=== PATIENT | female | born 1965 | race Caucasian/White ===

== ENCOUNTER 2018-06-07 19:32 | Inpatient (IN) | payer BC, OTHER ==
[~2018-06-07] VITALS: Ht 160 cm; Wt 105.8 kg
[2018-06-07] MEDS ORDERED: PIPERACILLIN/TAZO/PMX 3.375GM 50 ML IV ONE (20:30)
[2018-06-07] MEDS ORDERED: ONDANSETRON ODT 4 MG PO ONE (20:30)
[2018-06-07] MEDS ORDERED: CLINDAMYCIN PMX 900MG/50ML 50 ML IVPB ONE (20:30)
[2018-06-07] MEDS ORDERED: VANCOMYCIN PER PHARMACY MC PRN ×2 (20:30→22:00)
[2018-06-07] MEDS ORDERED: VANCOMYCIN 2,000 MG in SODIUM CHLORIDE 0.9% 500 ML IV ONE (20:30)
[2018-06-07] MEDS ORDERED: MORPHINE SULFATE 4 MG/ML, 1ML IV PRN (20:30)
[2018-06-07 20:40] LABS: BASOPHILS # (AUTO) 0.03 x10^3/uL (0-0.1); BASOPHILS % (AUTO) 0 % (0-1); EOSINOPHILS # (AUTO) 0.34 x10^3/uL (0-0.4); EOSINOPHILS % (AUTO) 3 % (1-7); LYMPHOCYTES % (AUTO) 20 % (22-44); MD NO; MEAN CORPUSCULAR HEMOGLOBIN 28.5 pg (27.0-34.8); MEAN CORPUSCULAR HGB CONC 33.2 g/dL (32.4-35.8); MEAN CORPUSCULAR VOLUME 85.8 fL (80-100); MEAN PLATELET VOLUME 9.7 fL (7.4-10.4); MONOCYTES # (AUTO) 0.38 x10^3/uL (0.2-0.8); MONOCYTES % (AUTO) 3 % (2-9); NEUTROPHILS # (AUTO) 8.35 x10^3/uL (1.8-6.8); NEUTROPHILS % (AUTO) 74 % (42-75); PLATELET COUNT 235 x10^3/uL (130-400); RED BLOOD COUNT 5.37 x10^6/uL (3.82-5.3)
[2018-06-07 20:47] LABS: PH, VENOUS 7.368 pH (7.320-7.420)
[2018-06-07 20:52] LABS: ACETONE, SERUM Negative (Negative)
[2018-06-07 20:53] LABS: ALANINE AMINOTRANSFERASE 19 U/L (12-78); ALBUMIN 3.5 g/dL (3.4-5.0); ANION GAP 10 mmol/L (5-15); CHLORIDE 106 mmol/L (98-107)
[2018-06-07 21:00] LABS: ALKALINE PHOSPHATASE 158 U/L (45-117); BILIRUBIN,TOTAL 0.7 mg/dL (0.2-1.0); TOTAL PROTEIN 8.5 g/dL (6.4-8.2)
[2018-06-07] MEDS ORDERED: MORPHINE SULFATE 4 MG/ML, 1ML ONE (21:04)
[2018-06-07] MEDS ORDERED: ONDANSETRON ODT 4 MG ONE ×2 (21:04→21:52)
[2018-06-07] MEDS ORDERED: PIPERACILLIN/TAZO/PMX 3.375GM 50 ML ONE (21:04)
[2018-06-07] MEDS ORDERED: SODIUM CHLORIDE FLUSH 10ML SYR IVF PRN (21:30)
[2018-06-07] MEDS ORDERED: ONDANSETRON 2MG/ML, 2ML IVPush PRN (22:00)
[2018-06-07] MEDS ORDERED: ZOLPIDEM 5MG TABLET PO PRN (22:00)
[2018-06-07] MEDS ORDERED: ENALAPRILAT 1.25 MG/ML, 2ML IVPush PRN (22:00)
[2018-06-07] MEDS ORDERED: GUAIFENESIN/COD200MG-20MG/10ML LIQUID PO PRN (22:00)
[2018-06-07] MEDS ORDERED: DOCUSATE 100 MG CAPSULE PO PRN (22:00)
[2018-06-07] MEDS ORDERED: ACETAMINOPHEN 325 MG TABLET PO PRN (22:00)
[2018-06-07] MEDS ORDERED: METF500T17 PO (22:05)
[2018-06-07] MEDS ORDERED: LISI40TA PO (22:05)
[2018-06-07] MEDS ORDERED: INSU100C SQ-INSULIN (22:05)
[2018-06-07] MEDS ORDERED: INSU100V13 SQ-INSULIN (22:05)
[2018-06-07] MEDS ORDERED: PHARMACOKINETIC CONSULTATION MC ONE (22:30)
[2018-06-07] MEDS ORDERED: PHARMACOKINETIC MONITORING MC PRN (22:30)
[2018-06-07 22:45] VITALS: BP 163/81
[2018-06-07 22:53] LABS: CULTURE INDICATED? NO; MICROSCOPIC AUTO
[2018-06-08] MEDS: ENOXAPARIN 40 MG/0.4 ML SQ SCH ×2 (00:22→21:26)
[2018-06-08] MEDS: NICOTINE 7 MG/24 HR PATCH.TD24 TD SCH ×2 (00:22→21:26)
[2018-06-08] MEDS: INSULIN GLARGINE 100 UNITS/ML, PEN SQ-INSULIN SCH ×2 (00:23→20:22)
[2018-06-08] MEDS: SODIUM CHLORIDE 0.9% 1,000 ML IV SCH ×4 (00:24→21:25)
[2018-06-08 00:58] LABS: BASOPHILS # (AUTO) 0.03 x10^3/uL (0-0.1); BASOPHILS % (AUTO) 0 % (0-1); EOSINOPHILS # (AUTO) 0.34 x10^3/uL (0-0.4); EOSINOPHILS % (AUTO) 3 % (1-7); LYMPHOCYTES # (AUTO) 2.68 x10^3/uL (1-3.4); LYMPHOCYTES % (AUTO) 23 % (22-44); MD NO; MEAN CORPUSCULAR HEMOGLOBIN 28.2 pg (27.0-34.8); MEAN CORPUSCULAR HGB CONC 32.8 g/dL (32.4-35.8); MEAN PLATELET VOLUME 9.5 fL (7.4-10.4); MONOCYTES # (AUTO) 0.45 x10^3/uL (0.2-0.8); MONOCYTES % (AUTO) 4 % (2-9); NEUTROPHILS # (AUTO) 8.25 x10^3/uL (1.8-6.8); NEUTROPHILS % (AUTO) 70 % (42-75); PLATELET COUNT 235 x10^3/uL (130-400); RED BLOOD COUNT 5.21 x10^6/uL (3.82-5.3); RED CELL DISTRIBUTION WIDTH 13.9 % (9.6-15.2)
[2018-06-08 01:09] LABS: ANION GAP 9 mmol/L (5-15); CALCIUM 8.7 mg/dL (8.5-10.1); CHLORIDE 106 mmol/L (98-107); CREATININE 1.13 mg/dL (0.55-1.02); TRIGLYCERIDES 144 mg/dL (50-200); VLDL CHOLESTEROL 29 mg/dL (0-25)
[2018-06-08 01:12] LABS: CHOL/HDL RATIO 3.7; CHOLESTEROL, TOTAL 112 mg/dL (140-239); HDL CHOL % 27 % (28-40); HDL CHOLESTEROL (DIRECT) 30 mg/dL (40-60); LDL CHOLESTEROL,CALCULATED 53 mg/dL (54-169); LDL/HDL RATIO 1.8 (0.5-3.0)
[2018-06-08 01:15] VITALS: BP 135/80
[2018-06-08] MEDS: PIPERACILLIN/TAZO/PMX 3.375GM 50 ML IV SCH ×4 (01:48→20:20)
[2018-06-08 08:00] VITALS: BP 129/68
[2018-06-08] MEDS: LISINOPRIL 5 MG TABLET PO SCH (08:08)
[2018-06-08] MEDS: INSULIN LISPRO 100 UNITS/ML, PEN SQ-INSULIN SCH ×4 (08:08→20:21)
[2018-06-08] MEDS ORDERED: MAGNESIUM SULFATE PMX 2GM/50ML 50 ML IV ONE (10:00)
[2018-06-08 13:20] VITALS: BP 156/82
[2018-06-08] MEDS: GABAPENTIN 100 MG CAPSULE PO SCH ×2 (16:02→20:21)
[2018-06-08] MEDS: OXYcodone IR 5MG TABLET PO PRN (16:03)
[2018-06-08 20:00] VITALS: BP 126/74
[2018-06-08] MEDS: ATORVASTATIN 20 MG TABLET PO SCH (20:21)
[2018-06-08] MEDS: VANCOMYCIN 2,000 MG in SODIUM CHLORIDE 0.9% 500 ML IV SCH (22:48)
[2018-06-09 02:00] VITALS: BP 130/81
[2018-06-09] MEDS: PIPERACILLIN/TAZO/PMX 3.375GM 50 ML IV SCH ×4 (02:15→20:53)
[2018-06-09] MEDS: SODIUM CHLORIDE 0.9% 1,000 ML IV SCH ×4 (02:16→20:56)
[2018-06-09] MEDS: OXYcodone IR 5MG TABLET PO PRN ×3 (02:21→15:27)
[2018-06-09 03:48] LABS: ANION GAP 8 mmol/L (5-15); CALCIUM 8.4 mg/dL (8.5-10.1); CHLORIDE 107 mmol/L (98-107); CREATININE 0.98 mg/dL (0.55-1.02)
[2018-06-09 03:49] LABS: ALBUMIN 2.8 g/dL (3.4-5.0)
[2018-06-09 03:54] LABS: BASOPHILS # (AUTO) 0.04 x10^3/uL (0-0.1); BASOPHILS % (AUTO) 1 % (0-1); EOSINOPHILS # (AUTO) 0.23 x10^3/uL (0-0.4); EOSINOPHILS % (AUTO) 3 % (1-7); LYMPHOCYTES # (AUTO) 1.87 x10^3/uL (1-3.4); LYMPHOCYTES % (AUTO) 23 % (22-44); MD NO; MEAN CORPUSCULAR HEMOGLOBIN 28.4 pg (27.0-34.8); MEAN CORPUSCULAR HGB CONC 33.2 g/dL (32.4-35.8); MEAN CORPUSCULAR VOLUME 85.5 fL (80-100); MEAN PLATELET VOLUME 9.5 fL (7.4-10.4); MONOCYTES # (AUTO) 0.44 x10^3/uL (0.2-0.8); MONOCYTES % (AUTO) 5 % (2-9); NEUTROPHILS # (AUTO) 5.63 x10^3/uL (1.8-6.8); NEUTROPHILS % (AUTO) 69 % (42-75); PLATELET COUNT 190 x10^3/uL (130-400); RED BLOOD COUNT 4.71 x10^6/uL (3.82-5.3); RED CELL DISTRIBUTION WIDTH 13.6 % (9.6-15.2)
[2018-06-09] MEDS: INSULIN LISPRO 100 UNITS/ML, PEN SQ-INSULIN SCH ×4 (07:00→21:00)
[2018-06-09 07:10] VITALS: BP 138/80
[2018-06-09] MEDS: GABAPENTIN 100 MG CAPSULE PO SCH ×3 (09:07→20:53)
[2018-06-09] MEDS: LISINOPRIL 5 MG TABLET PO SCH (09:07)
[2018-06-09] MEDS: CLOBETASOL PROPIONATE CRM 0.05%, 15GM TP SCH ×2 (12:14→21:01)
[2018-06-09 14:08] VITALS: BP 144/83
[2018-06-09 20:00] VITALS: BP 138/80
[2018-06-09] MEDS: ENOXAPARIN 40 MG/0.4 ML SQ SCH (20:53)
[2018-06-09] MEDS: NICOTINE 7 MG/24 HR PATCH.TD24 TD SCH (20:53)
[2018-06-09] MEDS: ATORVASTATIN 20 MG TABLET PO SCH (20:53)
[2018-06-09] MEDS: INSULIN GLARGINE 100 UNITS/ML, PEN SQ-INSULIN SCH (21:38)
[2018-06-09] MEDS: VANCOMYCIN 2,000 MG in SODIUM CHLORIDE 0.9% 500 ML IV SCH (23:39)
[2018-06-10] MEDS: OXYcodone IR 5MG TABLET PO PRN ×2 (01:49→09:03)
[2018-06-10 01:50] VITALS: BP 142/83
[2018-06-10] MEDS: PIPERACILLIN/TAZO/PMX 3.375GM 50 ML IV SCH ×4 (03:27→20:54)
[2018-06-10] MEDS: SODIUM CHLORIDE 0.9% 1,000 ML IV SCH ×2 (05:51→11:21)
[2018-06-10] MEDS: INSULIN LISPRO 100 UNITS/ML, PEN SQ-INSULIN SCH ×4 (07:00→21:12)
[2018-06-10 07:03] VITALS: BP 134/81
[2018-06-10] MEDS: LISINOPRIL 5 MG TABLET PO SCH (08:54)
[2018-06-10] MEDS: GABAPENTIN 100 MG CAPSULE PO SCH ×3 (08:54→20:55)
[2018-06-10] MEDS: CLOBETASOL PROPIONATE CRM 0.05%, 15GM TP SCH ×2 (09:03→21:15)
[2018-06-10 13:24] LABS: ANA SCREEN NEGATIVE (Negative)
[2018-06-10 14:08] VITALS: BP 132/81
[2018-06-10 19:14] VITALS: BP 140/79
[2018-06-10] MEDS: ATORVASTATIN 20 MG TABLET PO SCH (20:55)
[2018-06-10] MEDS: ENOXAPARIN 40 MG/0.4 ML SQ SCH (21:11)
[2018-06-10] MEDS: NICOTINE 7 MG/24 HR PATCH.TD24 TD SCH (21:11)
[2018-06-10] MEDS: INSULIN GLARGINE 100 UNITS/ML, PEN SQ-INSULIN SCH (21:12)
[2018-06-10] MEDS: VANCOMYCIN 2,000 MG in SODIUM CHLORIDE 0.9% 500 ML IV SCH (23:18)
[2018-06-11 00:22] VITALS: BP 127/74
[2018-06-11] MEDS: PIPERACILLIN/TAZO/PMX 3.375GM 50 ML IV SCH ×4 (02:18→20:02)
[2018-06-11] MEDS: OXYcodone IR 5MG TABLET PO PRN ×2 (02:19→11:18)
[2018-06-11 05:20] LABS: ANION GAP 7 mmol/L (5-15); CALCIUM 8.9 mg/dL (8.5-10.1); CHLORIDE 106 mmol/L (98-107); CREATININE 1.25 mg/dL (0.55-1.02)
[2018-06-11 06:57] VITALS: BP 132/82
[2018-06-11] MEDS: INSULIN LISPRO 100 UNITS/ML, PEN SQ-INSULIN SCH ×4 (09:00→20:43)
[2018-06-11] MEDS: GABAPENTIN 100 MG CAPSULE PO SCH ×3 (09:01→20:41)
[2018-06-11] MEDS: LISINOPRIL 5 MG TABLET PO SCH (09:01)
[2018-06-11] MEDS: CLOBETASOL PROPIONATE CRM 0.05%, 15GM TP SCH ×2 (09:01→22:36)
[2018-06-11] MEDS ORDERED: MAGNESIUM SULFATE PMX 2GM/50ML 50 ML IV ONE (09:30)
[2018-06-11] MEDS: MAGNESIUM CHLORIDE 64 MG TABLET.DR PO SCH ×2 (09:30→20:41)
[2018-06-11 12:28] VITALS: BP 145/81
[2018-06-11] MEDS: ATORVASTATIN 20 MG TABLET PO SCH (20:42)
[2018-06-11] MEDS: INSULIN GLARGINE 100 UNITS/ML, PEN SQ-INSULIN SCH (20:43)
[2018-06-11 20:44] VITALS: BP 115/67
[2018-06-11] MEDS: VANCOMYCIN 2,000 MG in SODIUM CHLORIDE 0.9% 500 ML IV SCH (22:34)
[2018-06-11] MEDS: ENOXAPARIN 40 MG/0.4 ML SQ SCH (22:35)
[2018-06-11] MEDS: NICOTINE 7 MG/24 HR PATCH.TD24 TD SCH (22:35)
[2018-06-12 01:45] VITALS: BP_SYST 137; BP_SYST 150; BP_DIAS 82; BP_DIAS 86
[2018-06-12] MEDS: PIPERACILLIN/TAZO/PMX 3.375GM 50 ML IV SCH ×2 (01:57→08:00)
[2018-06-12 05:09] LABS: CREATININE 1.35 mg/dL (0.55-1.02)
[2018-06-12] MEDS: INSULIN LISPRO 100 UNITS/ML, PEN SQ-INSULIN SCH ×2 (07:00→12:05)
[2018-06-12 08:00] VITALS: BP 152/88
[2018-06-12] MEDS: GABAPENTIN 100 MG CAPSULE PO SCH (08:11)
[2018-06-12] MEDS: LISINOPRIL 5 MG TABLET PO SCH (08:11)
[2018-06-12] MEDS: OXYcodone IR 5MG TABLET PO PRN (08:12)
[2018-06-12] MEDS: MAGNESIUM CHLORIDE 64 MG TABLET.DR PO SCH (08:12)
[2018-06-12] MEDS: CLOBETASOL PROPIONATE CRM 0.05%, 15GM TP SCH (08:13)
[2018-06-12] MEDS ORDERED: GABA-826 PO (11:03)
[2018-06-12] MEDS ORDERED: TRAM50TA2 PO (11:03)
[2018-06-12] MEDS ORDERED: DOXY100T10 PO (11:03)
[2018-06-12] MEDS ORDERED: ATOR20TA9 PO (11:03)
[2018-06-12] MEDS ORDERED: CLOB15CR19 TP (11:03)
[2018-06-12] MEDS ORDERED: LISI-167 PO (11:03)
[2018-06-12] MEDS ORDERED: MAGN64TA7 PO (11:04)
[2018-06-12] MEDS ORDERED: INSU100C SQ-INSULIN (11:14)
[2018-06-12] MEDS ORDERED: INSU100V13 SQ-INSULIN (11:14)
== END 2018-06-12 13:30 | disposition home or self-care (01) | DRG 638 ==
LOC: ED 20:50 → EDIP 21:18 → 4WST 22:27
PROVIDERS: ADMIT Internal Medicine; ATTEND Internal Medicine
DX: E11.621 Type 2 diabetes mellitus with foot ulcer (principal); L88 Pyoderma gangrenosum; L97.919 Non-pressure chronic ulcer of unspecified part of right lower leg with unspecified severity; L97.929 Non-pressure chronic ulcer of unspecified part of left lower leg with unspecified severity; Z68.41 Body mass index [BMI] 40.0-44.9, adult; L03.115 Cellulitis of right lower limb; E11.22 Type 2 diabetes mellitus with diabetic chronic kidney disease; E11.21 Type 2 diabetes mellitus with diabetic nephropathy; E11.65 Type 2 diabetes mellitus with hyperglycemia; E66.01 Morbid (severe) obesity due to excess calories; F17.200 Nicotine dependence, unspecified, uncomplicated; E11.622 Type 2 diabetes mellitus with other skin ulcer; I12.9 Hypertensive chronic kidney disease with stage 1 through stage 4 chronic kidney disease, or unspecified chronic kidney disease; L97.509 Non-pressure chronic ulcer of other part of unspecified foot with unspecified severity; N18.3 Chronic kidney disease, stage 3 (moderate); R31.0 Gross hematuria; Z79.4 Long term (current) use of insulin; Z80.41 Family history of malignant neoplasm of ovary; Z90.710 Acquired absence of both cervix and uterus; Z82.49 Family history of ischemic heart disease and other diseases of the circulatory system; Z91.14 Patient's other noncompliance with medication regimen
CPT/HCPCS: 36415; 71045; 80048; 80053; 80061; 80202; 81001; 82010; 82040; 82565; 82803; 82962; 83036; 83605; 83735; 84100; 84145; 84155; 84165; 85025; 85651; 86038; 86140; 86147; 86430; 86704; 86705; 86706; 86707; 86803; 87040; 87070; 87075; 87077; 87106; 87147; 87186; 87205; 87340; 87350; 93922; 96365; 96375; G0378; J1650; J2543; J3370; Q0162; J1815; J3475; J7030; J7040

== ENCOUNTER → 2018-06-16 | Outpatient (CLI) | payer OTHER ==
[~2018-06-16] MED LIST: ATOR20TA9 PO; CLOB15CR19 TP; DOXY100T10 PO; GABA-826 PO; INSU100C SQ-INSULIN; INSU100V13 SQ-INSULIN; LISI-167 PO; LISI40TA PO; MAGN64TA7 PO; METF500T17 PO; TRAM50TA2 PO
== END | disposition home or self-care (01) ==
LOC: WOUND 14:26
PROVIDERS: ATTEND Internal Medicine
DX: E11.622 Type 2 diabetes mellitus with other skin ulcer (principal); L97.812 Non-pressure chronic ulcer of other part of right lower leg with fat layer exposed; L97.822 Non-pressure chronic ulcer of other part of left lower leg with fat layer exposed; I13.10 Hypertensive heart and chronic kidney disease without heart failure, with stage 1 through stage 4 chronic kidney disease, or unspecified chronic kidney disease; E11.22 Type 2 diabetes mellitus with diabetic chronic kidney disease; N18.3 Chronic kidney disease, stage 3 (moderate); E11.21 Type 2 diabetes mellitus with diabetic nephropathy; E11.65 Type 2 diabetes mellitus with hyperglycemia; E78.5 Hyperlipidemia, unspecified; E66.01 Morbid (severe) obesity due to excess calories; Z68.39 Body mass index [BMI] 39.0-39.9, adult; Z79.4 Long term (current) use of insulin; Z90.710 Acquired absence of both cervix and uterus; Z87.891 Personal history of nicotine dependence
CPT/HCPCS: 97597; 97598; 99215

== ENCOUNTER → 2018-06-23 | Outpatient (CLI) | payer OTHER | END | disposition home or self-care (01) | LOC: WOUND 12:45 | PROVIDERS: ATTEND Internal Medicine | DX: E11.622 Type 2 diabetes mellitus with other skin ulcer (principal); L97.812 Non-pressure chronic ulcer of other part of right lower leg with fat layer exposed; L97.822 Non-pressure chronic ulcer of other part of left lower leg with fat layer exposed; E11.22 Type 2 diabetes mellitus with diabetic chronic kidney disease; I13.10 Hypertensive heart and chronic kidney disease without heart failure, with stage 1 through stage 4 chronic kidney disease, or unspecified chronic kidney disease; N18.3 Chronic kidney disease, stage 3 (moderate); E11.21 Type 2 diabetes mellitus with diabetic nephropathy; E11.65 Type 2 diabetes mellitus with hyperglycemia; E78.5 Hyperlipidemia, unspecified; E66.01 Morbid (severe) obesity due to excess calories; Z68.39 Body mass index [BMI] 39.0-39.9, adult; Z79.4 Long term (current) use of insulin; Z90.710 Acquired absence of both cervix and uterus; Z87.891 Personal history of nicotine dependence | CPT/HCPCS: 97597; 97598 ==

== ENCOUNTER → 2018-06-26 | Outpatient (CLI) | payer OTHER | END | disposition home or self-care (01) | LOC: CVU 07:05 | PROVIDERS: ATTEND Internal Medicine | DX: L97.812 Non-pressure chronic ulcer of other part of right lower leg with fat layer exposed (principal); L97.822 Non-pressure chronic ulcer of other part of left lower leg with fat layer exposed; E11.622 Type 2 diabetes mellitus with other skin ulcer; E66.9 Obesity, unspecified; Z87.891 Personal history of nicotine dependence | CPT/HCPCS: 93970 ==

== ENCOUNTER → 2018-07-02 | Outpatient (CLI) | payer OTHER | END | disposition home or self-care (01) | LOC: WOUND 09:00 | PROVIDERS: ATTEND Internal Medicine Cardiovascular Disease | DX: E11.622 Type 2 diabetes mellitus with other skin ulcer (principal); L97.812 Non-pressure chronic ulcer of other part of right lower leg with fat layer exposed; L97.822 Non-pressure chronic ulcer of other part of left lower leg with fat layer exposed; E11.22 Type 2 diabetes mellitus with diabetic chronic kidney disease; I13.10 Hypertensive heart and chronic kidney disease without heart failure, with stage 1 through stage 4 chronic kidney disease, or unspecified chronic kidney disease; N18.3 Chronic kidney disease, stage 3 (moderate); E11.21 Type 2 diabetes mellitus with diabetic nephropathy; E11.65 Type 2 diabetes mellitus with hyperglycemia; E78.5 Hyperlipidemia, unspecified; E66.01 Morbid (severe) obesity due to excess calories; Z79.4 Long term (current) use of insulin; Z90.710 Acquired absence of both cervix and uterus; Z87.891 Personal history of nicotine dependence; Z68.41 Body mass index [BMI] 40.0-44.9, adult | CPT/HCPCS: 97602 ==

== ENCOUNTER 2018-07-16 11:12 | Outpatient (CLI) | payer OTHER | END 2018-07-16 17:00 | disposition home or self-care (01) | LOC: WOUND 11:12 | PROVIDERS: ATTEND Internal Medicine Cardiovascular Disease | DX: E11.622 Type 2 diabetes mellitus with other skin ulcer (principal); L97.812 Non-pressure chronic ulcer of other part of right lower leg with fat layer exposed; L97.822 Non-pressure chronic ulcer of other part of left lower leg with fat layer exposed; E11.22 Type 2 diabetes mellitus with diabetic chronic kidney disease; I13.10 Hypertensive heart and chronic kidney disease without heart failure, with stage 1 through stage 4 chronic kidney disease, or unspecified chronic kidney disease; N18.3 Chronic kidney disease, stage 3 (moderate); E11.21 Type 2 diabetes mellitus with diabetic nephropathy; E11.65 Type 2 diabetes mellitus with hyperglycemia; E78.5 Hyperlipidemia, unspecified; E66.01 Morbid (severe) obesity due to excess calories; Z68.39 Body mass index [BMI] 39.0-39.9, adult; Z79.4 Long term (current) use of insulin; Z90.710 Acquired absence of both cervix and uterus; Z87.891 Personal history of nicotine dependence | CPT/HCPCS: 97602 ==

== ENCOUNTER → 2018-07-23 | Outpatient (CLI) | payer OTHER | END | disposition home or self-care (01) | LOC: WOUND 13:06 | PROVIDERS: ATTEND Internal Medicine | DX: E11.622 Type 2 diabetes mellitus with other skin ulcer (principal); L97.812 Non-pressure chronic ulcer of other part of right lower leg with fat layer exposed; L97.822 Non-pressure chronic ulcer of other part of left lower leg with fat layer exposed; E11.21 Type 2 diabetes mellitus with diabetic nephropathy; E11.65 Type 2 diabetes mellitus with hyperglycemia; I13.10 Hypertensive heart and chronic kidney disease without heart failure, with stage 1 through stage 4 chronic kidney disease, or unspecified chronic kidney disease; E11.22 Type 2 diabetes mellitus with diabetic chronic kidney disease; N18.9 Chronic kidney disease, unspecified; E78.5 Hyperlipidemia, unspecified; E66.01 Morbid (severe) obesity due to excess calories; Z68.39 Body mass index [BMI] 39.0-39.9, adult; Z90.710 Acquired absence of both cervix and uterus; Z87.891 Personal history of nicotine dependence | CPT/HCPCS: 97597 ==

== ENCOUNTER 2019-12-01 19:10 | Inpatient (IN) | payer OTHER ==
[~2019-12-01] VITALS: Ht 160 cm; Wt 107.1 kg
[~2019-12-01 19:10] MED LIST changes: +ATOR20TA37 PO; -ATOR20TA9 PO; -DOXY100T10 PO; +DOXY100T23 PO
[2019-12-01 19:59] LABS: ANION GAP 7 mmol/L (5-15); CALCIUM 9.2 mg/dL (8.5-10.1); CHLORIDE 103 mmol/L (98-107); CREATININE 1.02 mg/dL (0.55-1.02)
[2019-12-01 20:07] LABS: BASOPHILS # (AUTO) 0.02 x10^3/uL (0-0.1); BASOPHILS % (AUTO) 0 % (0-1); EOSINOPHILS # (AUTO) 0.28 x10^3/uL (0-0.4); EOSINOPHILS % (AUTO) 3 % (1-7); LYMPHOCYTES # (AUTO) 2.32 x10^3/uL (1-3.4); LYMPHOCYTES % (AUTO) 22 % (22-44); MD NO; MEAN CORPUSCULAR HEMOGLOBIN 26.9 pg (27.0-34.8); MEAN CORPUSCULAR HGB CONC 32.5 g/dL (32.4-35.8); MEAN CORPUSCULAR VOLUME 82.8 fL (80-100); MEAN PLATELET VOLUME 9.8 fL (7.4-10.4); MONOCYTES # (AUTO) 0.55 x10^3/uL (0.2-0.8); MONOCYTES % (AUTO) 5 % (2-9); NEUTROPHILS % (AUTO) 70 % (42-75); PLATELET COUNT 212 x10^3/uL (130-400); RED BLOOD COUNT 5.79 x10^6/uL (3.82-5.3); RED CELL DISTRIBUTION WIDTH 14.2 % (9.6-15.2)
[2019-12-01] MEDS ORDERED: PIPERACILLIN/TAZO/PMX 3.375GM 50 ML IV ONE (20:30)
[2019-12-01] MEDS ORDERED: CLINDAMYCIN PMX 600MG/50ML 50 ML IVPB ONE (20:30)
[2019-12-01] MEDS ORDERED: SODIUM CHLORIDE FLUSH 10ML SYR IVF ONE (20:30)
[2019-12-01] MEDS ORDERED: SODIUM CHLORIDE 0.9% 1,000ML IVBOLUS ONE (20:30)
[2019-12-01] MEDS ORDERED: DIPH,PERTUSS(ACELL),TET VAC/PF 0.5 ML IM-VACC ONE (20:30)
--- NOTE | 2019-12-01 20:45 | NUR ---
IV PLACED, LABS DRAWN, FLUIDS STARTED PER NOV. AWAITING LAB FOR BLOOD CULTURES AND ABX. MEDS REVIEWED WITH PT STS SHE HAS NOT TAKEN ANY MEDS FOR DM OR HTN IN MONTHS. CALL LIGHT WITHIN REACH. WILL CONTINUE TO MONITOR
--- NOTE | 2019-12-01 20:59 | NUR ---
LAB AT BEDSIDE FOR BLOOD CULTURE COLLECTION.
[2019-12-01] MEDS ORDERED: PIPERACILLIN/TAZO/PMX 3.375GM 50 ML ONE (21:16)
[2019-12-01] MEDS ORDERED: CLINDAMYCIN PMX 600MG/50ML 50 ML ONE (21:16)
--- NOTE | 2019-12-01 21:24 | NUR ---
ABX STARTED, BLOOD CULTURES DRAWN PRIOR TO ADMIN
--- NOTE | 2019-12-01 21:29 | NUR ---
HOSPITALIST AT BEDSIDE FOR ADMIT ASSESSMENT
[2019-12-01] MEDS ORDERED: SODIUM CHLORIDE FLUSH 10ML SYR IVF PRN (21:30)
[2019-12-01] MEDS ORDERED: ONDANSETRON 2MG/ML, 2ML IVPush PRN (21:30)
[2019-12-01] MEDS ORDERED: MORPHINE SULFATE 4 MG/ML, 1ML IVPush PRN (21:30)
--- NOTE | 2019-12-01 22:21 | NUR ---
PT CONTINUES TO REST COMFORTABLY IN BED. VSLuis Antonio. SOFIA. CALL LIGHT WITHIN REACH
--- NOTE | 2019-12-01 22:25 | NUR ---
REPORT GIVEN TO UQEENIE RN, PT READY FOR TRANSPORT
[2019-12-02 00:03] VITALS: BP 158/78
[2019-12-02] MEDS ORDERED: LIDODERM 5% PATCH TD PRN (01:00)
[2019-12-02] MEDS ORDERED: DOCUSATE 100 MG CAPSULE PO PRN (01:00)
[2019-12-02] MEDS ORDERED: ACETAMINOPHEN 325 MG TABLET PO PRN ×2 (01:00→08:30)
[2019-12-02] MEDS ORDERED: ONDANSETRON ODT 4 MG PO PRN (01:00)
[2019-12-02] MEDS ORDERED: hydrALAzine 20 MG/ML, 1ML IVPush PRN (01:00)
[2019-12-02] MEDS: OXYcodone/APAP 5/325MG TABLET PO PRN ×4 (01:09→22:43)
[2019-12-02 02:00] VITALS: BP 175/97
[2019-12-02] MEDS: TEMAZEPAM 15 MG CAPSULE PO PRN ×2 (02:09→22:40)
[2019-12-02] MEDS: PIPERACILLIN/TAZO/PMX 3.375GM 50 ML IV SCH ×3 (04:06→22:24)
[2019-12-02] MEDS: LINEZOLID PMX 600MG/300ML 300 ML IV SCH ×2 (05:23→18:34)
[2019-12-02] MEDS: CARVEDILOL 3.125 MG TABLET PO SCH ×2 (08:52→18:42)
[2019-12-02 08:55] VITALS: BP 127/77
[2019-12-02 09:47] LABS: BASOPHILS # (AUTO) 0.04 x10^3/uL (0-0.1); BASOPHILS % (AUTO) 1 % (0-1); EOSINOPHILS # (AUTO) 0.28 x10^3/uL (0-0.4); EOSINOPHILS % (AUTO) 3 % (1-7); LYMPHOCYTES # (AUTO) 2.02 x10^3/uL (1-3.4); LYMPHOCYTES % (AUTO) 24 % (22-44); MD NO; MEAN CORPUSCULAR HEMOGLOBIN 27.5 pg (27.0-34.8); MEAN CORPUSCULAR HGB CONC 32.9 g/dL (32.4-35.8); MEAN CORPUSCULAR VOLUME 83.8 fL (80-100); MEAN PLATELET VOLUME 9.9 fL (7.4-10.4); MONOCYTES # (AUTO) 0.49 x10^3/uL (0.2-0.8); MONOCYTES % (AUTO) 6 % (2-9); NEUTROPHILS # (AUTO) 5.67 x10^3/uL (1.8-6.8); NEUTROPHILS % (AUTO) 67 % (42-75); PLATELET COUNT 199 x10^3/uL (130-400); RED BLOOD COUNT 5.17 x10^6/uL (3.82-5.3); RED CELL DISTRIBUTION WIDTH 14.2 % (9.6-15.2)
[2019-12-02] MEDS ORDERED: METF850T PO ×2 (11:45)
[2019-12-02] MEDS ORDERED: CARV3.1212 PO (11:45)
[2019-12-02] MEDS ORDERED: ACET325T26 PO (11:45)
[2019-12-02] MEDS ORDERED: HYDR-3341 PO ×2 (11:45)
[2019-12-02] MEDS: INSULIN LISPRO 100 UNITS/ML, PEN SQ-INSULIN SCH ×3 (14:01→20:49)
[2019-12-02 16:34] VITALS: BP 144/72
[2019-12-02] MEDS: HEPARIN 5,000 UNITS/ML, 1ML SQ SCH (16:39)
[2019-12-02] MEDS ORDERED: metFORMIN 850 MG TABLET PO SCH (17:00)
[2019-12-02 20:12] VITALS: BP 139/73
[2019-12-03] MEDS: HEPARIN 5,000 UNITS/ML, 1ML SQ SCH ×3 (02:19→18:17)
[2019-12-03 02:23] VITALS: BP 147/79
[2019-12-03 04:52] LABS: BASOPHILS # (AUTO) 0.05 x10^3/uL (0-0.1); BASOPHILS % (AUTO) 1 % (0-1); EOSINOPHILS # (AUTO) 0.27 x10^3/uL (0-0.4); EOSINOPHILS % (AUTO) 3 % (1-7); LYMPHOCYTES # (AUTO) 1.91 x10^3/uL (1-3.4); LYMPHOCYTES % (AUTO) 20 % (22-44); MD NO; MEAN CORPUSCULAR HEMOGLOBIN 27.2 pg (27.0-34.8); MEAN CORPUSCULAR HGB CONC 32.6 g/dL (32.4-35.8); MEAN CORPUSCULAR VOLUME 83.4 fL (80-100); MEAN PLATELET VOLUME 9.6 fL (7.4-10.4); MONOCYTES # (AUTO) 0.44 x10^3/uL (0.2-0.8); MONOCYTES % (AUTO) 5 % (2-9); NEUTROPHILS # (AUTO) 6.92 x10^3/uL (1.8-6.8); NEUTROPHILS % (AUTO) 72 % (42-75); PLATELET COUNT 195 x10^3/uL (130-400); RED BLOOD COUNT 5.57 x10^6/uL (3.82-5.3); RED CELL DISTRIBUTION WIDTH 14.4 % (9.6-15.2)
[2019-12-03 05:03] LABS: CHLORIDE 102 mmol/L (98-107)
[2019-12-03 05:08] LABS: ANION GAP 6 mmol/L (5-15); CREATININE 1.06 mg/dL (0.55-1.02)
[2019-12-03] MEDS: OXYcodone/APAP 5/325MG TABLET PO PRN ×2 (06:33→10:58)
[2019-12-03] MEDS: PIPERACILLIN/TAZO/PMX 3.375GM 50 ML IV SCH ×3 (06:33→17:33)
[2019-12-03] MEDS: CARVEDILOL 3.125 MG TABLET PO SCH ×2 (06:53→18:17)
[2019-12-03] MEDS: LINEZOLID PMX 600MG/300ML 300 ML IV SCH (07:51)
[2019-12-03] MEDS: metFORMIN 500 MG TABLET PO SCH ×2 (07:59→16:32)
[2019-12-03] MEDS: INSULIN LISPRO 100 UNITS/ML, PEN SQ-INSULIN SCH ×4 (08:05→20:08)
[2019-12-03 08:11] VITALS: BP 162/84
[2019-12-03 13:13] VITALS: BP 154/82
[2019-12-03] MEDS: SODIUM CHLORIDE 0.9% 1,000 ML IV SCH (17:33)
[2019-12-03] MEDS ORDERED: PHARMACOKINETIC CONSULTATION MC ONE (18:30)
[2019-12-03] MEDS ORDERED: PHARMACOKINETIC MONITORING MC PRN (18:30)
[2019-12-03] MEDS ORDERED: VANCOMYCIN 2,500 MG in SODIUM CHLORIDE 0.9% 500 ML IV ONE (18:30)
[2019-12-03] MEDS ORDERED: VANCOMYCIN PER PHARMACY MC PRN (18:30)
[2019-12-03 19:06] VITALS: BP 154/83
[2019-12-03] MEDS ORDERED: AMLODIPINE 2.5 MG TABLET PO SCH (21:00)
[2019-12-03] MEDS ORDERED: LISINOPRIL 20 MG TABLET PO SCH (21:00)
[2019-12-03 23:02] VITALS: BP 144/80
[2019-12-04 01:02] VITALS: BP 134/83
[2019-12-04] MEDS: HEPARIN 5,000 UNITS/ML, 1ML SQ SCH ×2 (02:13→10:00)
[2019-12-04] MEDS: PIPERACILLIN/TAZO/PMX 3.375GM 50 ML IV SCH ×2 (02:13→12:13)
[2019-12-04] MEDS: OXYcodone/APAP 5/325MG TABLET PO PRN ×2 (02:35→08:24)
[2019-12-04 05:24] VITALS: BP 138/83
[2019-12-04] MEDS: CARVEDILOL 3.125 MG TABLET PO SCH (05:25)
[2019-12-04 05:33] LABS: ANION GAP 6 mmol/L (5-15); CALCIUM 9.3 mg/dL (8.5-10.1); CHLORIDE 105 mmol/L (98-107); CREATININE 1.06 mg/dL (0.55-1.02)
[2019-12-04 06:32] VITALS: BP 130/70
[2019-12-04] MEDS: INSULIN LISPRO 100 UNITS/ML, PEN SQ-INSULIN SCH ×2 (08:23→12:10)
[2019-12-04] MEDS ORDERED: metFORMIN 850 MG TABLET PO SCH (09:00)
[2019-12-04] MEDS ORDERED: LEVO500T47 PO (10:57)
[2019-12-04] MEDS ORDERED: ISOS5TAB2 PO (10:57)
[2019-12-04] MEDS ORDERED: SULF1TAB24 PO (10:57)
[2019-12-04] MEDS ORDERED: METF850T PO (10:57)
[2019-12-04] MEDS ORDERED: HYDR-3342 PO (10:57)
[2019-12-04] MEDS: SODIUM CHLORIDE 0.9% 1,000 ML IV SCH (12:13)
[2019-12-04 12:42] VITALS: BP 154/80
[2019-12-04] MEDS ORDERED: VANCOMYCIN 2,000 MG in SODIUM CHLORIDE 0.9% 500 ML IV SCH (18:00)
== END 2019-12-04 14:48 | disposition home or self-care (01) | DRG 565 ==
LOC: ED 21:16 → EDIP 22:05 → 4NW 23:03
PROVIDERS: ADMIT Hospitalist; ATTEND Hospitalist
DX: H61.032 Chondritis of left external ear (principal); Z68.41 Body mass index [BMI] 40.0-44.9, adult; E87.1 Hypo-osmolality and hyponatremia; H60.12 Cellulitis of left external ear; I10 Essential (primary) hypertension; E11.65 Type 2 diabetes mellitus with hyperglycemia; E66.01 Morbid (severe) obesity due to excess calories; F17.200 Nicotine dependence, unspecified, uncomplicated; R06.83 Snoring; Z80.8 Family history of malignant neoplasm of other organs or systems; Z91.14 Patient's other noncompliance with medication regimen; Z87.11 Personal history of peptic ulcer disease; Z90.710 Acquired absence of both cervix and uterus
CPT/HCPCS: 36415; 80048; 82962; 83036; 83605; 85025; 87040; 96361; 96374; G0378; J1644; J2020; J2543; J3370; J0360; J1815; J7030; J7040

== ENCOUNTER 2020-04-27 09:40 | Inpatient (IN) | payer OTHER ==
[~2020-04-27] VITALS: Ht 160 cm; Wt 98.3 kg
[~2020-04-27 09:40] MED LIST changes: +ACET325T26 PO; +CARV3.1212 PO; +HYDR-3341 PO; +HYDR-3342 PO; +ISOS5TAB2 PO; +LEVO500T47 PO; +METF850T PO; +SULF1TAB24 PO
[2020-04-27] MEDS ORDERED: ACETAMINOPHEN 325 MG TABLET ONE (10:21)
[2020-04-27] MEDS ORDERED: ACETAMINOPHEN 325 MG TABLET PO ONE (10:30)
[2020-04-27 10:50] LABS: MICROSCOPIC INDICATED
[2020-04-27 10:52] LABS: ALANINE AMINOTRANSFERASE 13 U/L (12-78); ALBUMIN 2.7 g/dL (3.4-5.0); ANION GAP 9 mmol/L (5-15); CALCIUM 8.9 mg/dL (8.5-10.1); CHLORIDE 106 mmol/L (98-107); CREATININE 1.52 mg/dL (0.55-1.02)
[2020-04-27 10:59] LABS: ALKALINE PHOSPHATASE 216 U/L (45-117); BILIRUBIN,TOTAL 1.9 mg/dL (0.2-1.0); TOTAL PROTEIN 8.5 g/dL (6.4-8.2)
[2020-04-27 11:01] LABS: D-DIMER (DIC) 4.9 ug/mlFEU (0.00-0.52); PROTIME 11.4 Seconds (9.6-11.5)
[2020-04-27 11:08] LABS: MEAN CORPUSCULAR HEMOGLOBIN 27.1 pg (27.0-34.8); MEAN CORPUSCULAR VOLUME 84.7 fL (80-100); MEAN PLATELET VOLUME 9.8 fL (7.4-10.4); PLATELET COUNT 164 x10^3/uL (130-400); RED BLOOD COUNT 4.82 x10^6/uL (3.82-5.3); RED CELL DISTRIBUTION WIDTH 14.4 % (9.6-15.2)
[2020-04-27 11:39] LABS: MD YES
[2020-04-27 11:41] LABS: BAND#(MANUAL) 2.03 x10^3/uL; BANDS%(MANUAL) 15 % (0-7); EOS#(MANUAL) 0.14 x10^3/uL (0.0-0.4); EOS% (MANUAL) 1 % (1-7); LYMPH#(MANUAL) 0.95 x10^3/uL (1-3.4); LYMPHS% (MANUAL) 7 % (22-44); MONOS#(MANUAL) 1.08 x10^3/uL (0.3-2.7); MONOS% (MANUAL) 8 % (2-9); SEG#(MANUAL) 9.32 x10^3/uL (1.8-6.8); SEGS% (MANUAL) 69 % (42-75)
[2020-04-27 11:42] LABS: <PLATELET ESTIMATE> ADEQUATE; <PLT MORPHOLOGY> NORMAL PLT MORPH; <RBC MORPHOLOGY> NORMAL
[2020-04-27] MEDS ORDERED: CEFTRIAXONE PMX 1GM/50ML 50 ML ONE (11:42)
[2020-04-27] MEDS ORDERED: CEFTRIAXONE 1,000 MG IM ONE (12:00)
[2020-04-27] MEDS ORDERED: CEFTRIAXONE PMX 1GM/50ML 50 ML IV ONE ×2 (12:00→14:00)
[2020-04-27] MEDS ORDERED: SODIUM CHLORIDE FLUSH 10ML SYR IVF PRN (12:00)
[2020-04-27] MEDS ORDERED: LACTATED RINGERS 1,000 ML IVBOLUS ONE (14:00)
[2020-04-27] MEDS ORDERED: OXYcodone IR 5MG TABLET PO PRN (14:00)
[2020-04-27] MEDS ORDERED: MELATONIN 5 MG TABLET PO PRN (14:00)
[2020-04-27] MEDS ORDERED: HYDROmorphone 2 MG/ML, 1ML IVPush PRN (14:00)
[2020-04-27] MEDS ORDERED: METOCLOPRAMIDE 5 MG/ML, 2ML IVPush PRN (14:00)
[2020-04-27] MEDS ORDERED: POLYETHYLENE GLYCOL 17 GM PACKET PO PRN (14:00)
[2020-04-27] MEDS ORDERED: TRAZODONE 50MG TABLET PO PRN (14:00)
--- NOTE | 2020-04-27 15:48 | NUR ---
2nd of 3 liters lactate ringers initiated. sepsis sheet filled out and given to supervisor paint department. pt resting comfortably at thsi time. nadn. call light in reach and pt encouraged to call for any needs.
[2020-04-27] MEDS ORDERED: ENOXAPARIN 100 MG/ML ONE (15:56)
[2020-04-27] MEDS: ENOXAPARIN 100 MG/ML SQ SCH (16:00)
[2020-04-27] MEDS: CARVEDILOL 3.125 MG TABLET PO SCH ×2 (18:00→23:27)
[2020-04-27] MEDS: INSULIN LISPRO 100 UNITS/ML, PEN SQ-INSULIN SCH ×2 (20:06→21:00)
[2020-04-27] MEDS: metFORMIN 850 MG TABLET PO SCH ×2 (20:06→21:00)
[2020-04-27] MEDS ORDERED: MELATONIN 5 MG TABLET PO SCH (21:00)
[2020-04-27 21:14] VITALS: BP 118/75
[2020-04-27] MEDS ORDERED: LISI40TA PO (21:19)
[2020-04-27] MEDS: NS + 20MEQ KCL 1,000 ML IV SCH (23:13)
[2020-04-27] MEDS: ASCORBATE SODIUM 3,000 MG in SODIUM CHLORIDE 0.9% 250 ML IVPB SCH (23:13)
[2020-04-28 01:27] VITALS: BP 112/72
[2020-04-28 05:23] LABS: CHLORIDE 107 mmol/L (98-107)
[2020-04-28 05:27] LABS: MEAN CORPUSCULAR HEMOGLOBIN 27.3 pg (27.0-34.8); MEAN CORPUSCULAR HGB CONC 32.3 g/dL (32.4-35.8); MEAN CORPUSCULAR VOLUME 84.6 fL (80-100); MEAN PLATELET VOLUME 9.7 fL (7.4-10.4); PLATELET COUNT 136 x10^3/uL (130-400); RED BLOOD COUNT 4.18 x10^6/uL (3.82-5.3); RED CELL DISTRIBUTION WIDTH 14.4 % (9.6-15.2)
[2020-04-28 05:29] LABS: ANION GAP 9 mmol/L (5-15); CALCIUM 8.2 mg/dL (8.5-10.1); CREATININE 1.24 mg/dL (0.55-1.02)
[2020-04-28] MEDS: ASCORBATE SODIUM 3,000 MG in SODIUM CHLORIDE 0.9% 250 ML IVPB SCH ×2 (05:29→11:12)
[2020-04-28] MEDS: ENOXAPARIN 100 MG/ML SQ SCH (05:29)
[2020-04-28] MEDS: ACETAMINOPHEN 325 MG TABLET PO PRN (05:33)
[2020-04-28 05:56] LABS: BASOPHILS % (AUTO) 0 % (0-1); EOSINOPHILS % (AUTO) 1 % (1-7); LYMPHOCYTES # (AUTO) 0.96 x10^3/uL (1-3.4); LYMPHOCYTES % (AUTO) 9 % (22-44); MD SCAN; MONOCYTES % (AUTO) 10 % (2-9); NEUTROPHILS # (AUTO) 8.76 x10^3/uL (1.8-6.8); NEUTROPHILS % (AUTO) 80 % (42-75)
[2020-04-28 07:26] VITALS: BP 93/62
[2020-04-28] MEDS: metFORMIN 850 MG TABLET PO SCH (08:50)
[2020-04-28] MEDS: SENNA/DOCUSATE TABLET PO SCH (08:51)
[2020-04-28] MEDS: NS + 20MEQ KCL 1,000 ML IV SCH (08:51)
[2020-04-28] MEDS ORDERED: ZINC SULFATE 220 MG CAPSULE PO SCH (09:00)
[2020-04-28] MEDS ORDERED: CHOLECALCIFEROL 5,000u TAB PO SCH (09:00)
[2020-04-28] MEDS ORDERED: DEXAMETHASONE 4 MG TABLET PO SCH (09:00)
[2020-04-28] MEDS: INSULIN LISPRO 100 UNITS/ML, PEN SQ-INSULIN SCH ×4 (09:49→21:44)
[2020-04-28] MEDS ORDERED: ASCORBIC ACID 250 MG TAB PO SCH (12:00)
[2020-04-28] MEDS: CEFTRIAXONE PMX 2GM/50ML 50 ML IV SCH (13:47)
[2020-04-28 14:22] VITALS: BP 114/69
[2020-04-28] MEDS ORDERED: GLUCAGON 1 MG IM PRN (16:00)
[2020-04-28] MEDS ORDERED: DEXTROSE 4 GM TAB.CHEW PO PRN (16:00)
[2020-04-28] MEDS ORDERED: DEXTROSE 50%, 50ML SYRINGE IVPush PRN (16:00)
[2020-04-28 21:40] VITALS: BP 113/82
[2020-04-28] MEDS: SODIUM CHLORIDE FLUSH 10ML SYR IVF SCH (21:44)
[2020-04-28] MEDS: INSULIN GLARGINE 100 UNITS/ML, PEN SQ-INSULIN SCH (21:44)
[2020-04-29 01:40] VITALS: BP 116/65
[2020-04-29 05:28] LABS: ALBUMIN 1.9 g/dL (3.4-5.0); ANION GAP 9 mmol/L (5-15); CALCIUM 8.8 mg/dL (8.5-10.1); CHLORIDE 108 mmol/L (98-107)
[2020-04-29 05:33] LABS: ALANINE AMINOTRANSFERASE 9 U/L (12-78); ALKALINE PHOSPHATASE 171 U/L (45-117); BILIRUBIN,TOTAL 0.8 mg/dL (0.2-1.0); CREATININE 1.12 mg/dL (0.55-1.02); TOTAL PROTEIN 7.2 g/dL (6.4-8.2)
[2020-04-29 06:05] LABS: MD YES
[2020-04-29 06:06] LABS: MEAN CORPUSCULAR HEMOGLOBIN 27.4 pg (27.0-34.8); MEAN CORPUSCULAR HGB CONC 32.3 g/dL (32.4-35.8); MEAN CORPUSCULAR VOLUME 84.7 fL (80-100); MEAN PLATELET VOLUME 10.1 fL (7.4-10.4); PLATELET COUNT 139 x10^3/uL (130-400); RED BLOOD COUNT 4.16 x10^6/uL (3.82-5.3); RED CELL DISTRIBUTION WIDTH 14.8 % (9.6-15.2)
[2020-04-29 06:07] LABS: BAND#(MANUAL) 0.23 x10^3/uL; BANDS%(MANUAL) 2 % (0-7); LYMPH#(MANUAL) 1.36 x10^3/uL (1-3.4); LYMPHS% (MANUAL) 12 % (22-44); MONOS#(MANUAL) 0.34 x10^3/uL (0.3-2.7); MONOS% (MANUAL) 3 % (2-9); SEG#(MANUAL) 9.38 x10^3/uL (1.8-6.8); SEGS% (MANUAL) 83 % (42-75)
[2020-04-29 06:08] LABS: <PLATELET ESTIMATE> ADEQUATE; <RBC MORPHOLOGY> NORMAL; LARGE PLATELETS 1+
[2020-04-29 07:22] VITALS: BP 108/71
[2020-04-29] MEDS: SENNA/DOCUSATE TABLET PO SCH (07:59)
[2020-04-29] MEDS: INSULIN GLARGINE 100 UNITS/ML, PEN SQ-INSULIN SCH ×2 (08:00→21:30)
[2020-04-29] MEDS: ENOXAPARIN 40 MG/0.4 ML SQ SCH (08:00)
[2020-04-29] MEDS: INSULIN LISPRO 100 UNITS/ML, PEN SQ-INSULIN SCH ×4 (08:00→21:30)
[2020-04-29] MEDS: SODIUM CHLORIDE FLUSH 10ML SYR IVF SCH ×2 (08:01→21:31)
[2020-04-29 13:11] VITALS: BP 117/70
[2020-04-29] MEDS: CEFTRIAXONE PMX 2GM/50ML 50 ML IV SCH (13:40)
[2020-04-29 20:35] VITALS: BP 119/80
[2020-04-29] MEDS ORDERED: CARV3.122 PO (21:29)
[2020-04-30 02:56] VITALS: BP 123/67
[2020-04-30 06:41] LABS: BASOPHILS # (AUTO) 0.02 x10^3/uL (0-0.1); BASOPHILS % (AUTO) 0 % (0-1); EOSINOPHILS % (AUTO) 0 % (1-7); LYMPHOCYTES # (AUTO) 1.32 x10^3/uL (1-3.4); LYMPHOCYTES % (AUTO) 12 % (22-44); MD NO; MEAN CORPUSCULAR HEMOGLOBIN 27.4 pg (27.0-34.8); MEAN CORPUSCULAR HGB CONC 32.6 g/dL (32.4-35.8); MEAN CORPUSCULAR VOLUME 84.2 fL (80-100); MEAN PLATELET VOLUME 10.8 fL (7.4-10.4); MONOCYTES # (AUTO) 0.44 x10^3/uL (0.2-0.8); MONOCYTES % (AUTO) 4 % (2-9); NEUTROPHILS # (AUTO) 9.49 x10^3/uL (1.8-6.8); NEUTROPHILS % (AUTO) 84 % (42-75); PLATELET COUNT 155 x10^3/uL (130-400); RED BLOOD COUNT 3.81 x10^6/uL (3.82-5.3); RED CELL DISTRIBUTION WIDTH 14.6 % (9.6-15.2)
[2020-04-30 06:51] LABS: ANION GAP 7 mmol/L (5-15); CALCIUM 9.1 mg/dL (8.5-10.1); CHLORIDE 105 mmol/L (98-107)
[2020-04-30 06:52] LABS: CREATININE 0.99 mg/dL (0.55-1.02)
[2020-04-30 07:21] VITALS: BP 133/76
[2020-04-30] MEDS: SODIUM CHLORIDE FLUSH 10ML SYR IVF SCH ×2 (08:50→20:45)
[2020-04-30] MEDS: SENNA/DOCUSATE TABLET PO SCH (08:51)
[2020-04-30] MEDS: INSULIN GLARGINE 100 UNITS/ML, PEN SQ-INSULIN SCH ×2 (08:51→20:43)
[2020-04-30] MEDS: INSULIN LISPRO 100 UNITS/ML, PEN SQ-INSULIN SCH ×4 (08:51→20:43)
[2020-04-30] MEDS: ENOXAPARIN 40 MG/0.4 ML SQ SCH (08:52)
[2020-04-30 12:15] VITALS: BP 132/74
[2020-04-30] MEDS: CEFTRIAXONE PMX 2GM/50ML 50 ML IV SCH (12:55)
[2020-04-30 13:04] VITALS: BP 122/63
[2020-04-30] MEDS: metFORMIN 850 MG TABLET PO SCH (17:02)
[2020-04-30 20:41] VITALS: BP 105/67
[2020-04-30] MEDS: SIMETHICONE 125 MG CHEW TAB PO PRN (23:03)
[2020-05-01 02:05] VITALS: BP 102/58
[2020-05-01 06:17] LABS: BASOPHILS # (AUTO) 0.04 x10^3/uL (0-0.1); BASOPHILS % (AUTO) 0 % (0-1); EOSINOPHILS # (AUTO) 0.08 x10^3/uL (0-0.4); EOSINOPHILS % (AUTO) 1 % (1-7); LYMPHOCYTES % (AUTO) 20 % (22-44); MD NO; MEAN CORPUSCULAR HEMOGLOBIN 27.4 pg (27.0-34.8); MEAN CORPUSCULAR HGB CONC 32.4 g/dL (32.4-35.8); MEAN CORPUSCULAR VOLUME 84.5 fL (80-100); MEAN PLATELET VOLUME 9.8 fL (7.4-10.4); MONOCYTES # (AUTO) 0.66 x10^3/uL (0.2-0.8); MONOCYTES % (AUTO) 6 % (2-9); NEUTROPHILS # (AUTO) 8.17 x10^3/uL (1.8-6.8); NEUTROPHILS % (AUTO) 73 % (42-75); PLATELET COUNT 196 x10^3/uL (130-400); RED BLOOD COUNT 3.08 x10^6/uL (3.82-5.3); RED CELL DISTRIBUTION WIDTH 14.7 % (9.6-15.2)
[2020-05-01 07:43] VITALS: BP 108/69
[2020-05-01] MEDS: INSULIN LISPRO 100 UNITS/ML, PEN SQ-INSULIN SCH ×4 (08:16→19:58)
[2020-05-01] MEDS: ENOXAPARIN 40 MG/0.4 ML SQ SCH (08:16)
[2020-05-01] MEDS: SODIUM CHLORIDE FLUSH 10ML SYR IVF SCH ×2 (08:17→20:05)
[2020-05-01] MEDS: SENNA/DOCUSATE TABLET PO SCH (08:17)
[2020-05-01] MEDS: ACETAMINOPHEN 325 MG TABLET PO PRN (09:30)
[2020-05-01] MEDS: metFORMIN 850 MG TABLET PO SCH ×2 (09:30→16:26)
[2020-05-01] MEDS: CEFTRIAXONE PMX 2GM/50ML 50 ML IV SCH (13:04)
[2020-05-01 13:17] VITALS: BP 98/62
[2020-05-01 19:00] VITALS: BP 106/65
[2020-05-01] MEDS: INSULIN GLARGINE 100 UNITS/ML, PEN SQ-INSULIN SCH (20:05)
[2020-05-02 01:04] VITALS: BP 118/71
[2020-05-02 05:48] LABS: ANION GAP 6 mmol/L (5-15); CALCIUM 8.9 mg/dL (8.5-10.1); CHLORIDE 106 mmol/L (98-107)
[2020-05-02 05:50] LABS: CREATININE 0.91 mg/dL (0.55-1.02)
[2020-05-02 05:54] LABS: MEAN CORPUSCULAR HEMOGLOBIN 27.5 pg (27.0-34.8); MEAN CORPUSCULAR HGB CONC 32.5 g/dL (32.4-35.8); MEAN CORPUSCULAR VOLUME 84.8 fL (80-100); MEAN PLATELET VOLUME 10.2 fL (7.4-10.4); PLATELET COUNT 264 x10^3/uL (130-400); RED BLOOD COUNT 3.37 x10^6/uL (3.82-5.3); RED CELL DISTRIBUTION WIDTH 14.4 % (9.6-15.2)
[2020-05-02] MEDS: PANTOPRAZOLE 40MG TABLET PO SCH (05:59)
[2020-05-02] MEDS: SIMETHICONE 125 MG CHEW TAB PO PRN (06:03)
[2020-05-02 06:21] LABS: MD YES
[2020-05-02 06:23] LABS: BAND#(MANUAL) 0.58 x10^3/uL; BANDS%(MANUAL) 3 % (0-7); EOS#(MANUAL) 0.38 x10^3/uL (0.0-0.4); EOS% (MANUAL) 2 % (1-7); LYMPH#(MANUAL) 3.65 x10^3/uL (1-3.4); LYMPHS% (MANUAL) 19 % (22-44); METAMYELOCYTES# (MANUAL) 0.58 x10^3/uL (0-0); METAMYELOCYTES% (MANUAL) 3 % (0-1); MONOS#(MANUAL) 1.92 x10^3/uL (0.3-2.7); MONOS% (MANUAL) 10 % (2-9); SEGS% (MANUAL) 63 % (42-75)
[2020-05-02 06:24] LABS: <PLATELET ESTIMATE> ADEQUATE; ANISOCYTOSIS 1+; LARGE PLATELETS 1+; MICROCYTOSIS 1+; POLYCHROMASIA 1+
[2020-05-02] MEDS: INSULIN LISPRO 100 UNITS/ML, PEN SQ-INSULIN SCH ×4 (07:00→20:27)
[2020-05-02 07:46] VITALS: BP 101/60
[2020-05-02] MEDS: ENOXAPARIN 40 MG/0.4 ML SQ SCH (07:54)
[2020-05-02] MEDS: metFORMIN 850 MG TABLET PO SCH ×2 (07:54→16:09)
[2020-05-02] MEDS: SODIUM CHLORIDE FLUSH 10ML SYR IVF SCH ×2 (07:55→20:39)
[2020-05-02] MEDS: SENNA/DOCUSATE TABLET PO SCH (07:55)
[2020-05-02] MEDS: CEFTRIAXONE PMX 2GM/50ML 50 ML IV SCH (14:03)
[2020-05-02 14:10] VITALS: BP 112/70
[2020-05-02 18:53] LABS: CLOSTRIDIUM DIFFICILE ANTIGEN POSITIVE; CLOSTRIDIUM DIFFICILE TOXIN POSITIVE (Negative)
[2020-05-02 19:35] LABS: OCCULT BLOOD POSITIVE (NEGATIVE)
[2020-05-02 20:04] VITALS: BP 129/77
[2020-05-02 20:06] VITALS: BP 116/76
[2020-05-02] MEDS: VANCOMYCIN 50 MG/ML ORAL SUSP PO SCH (20:38)
[2020-05-02] MEDS: INSULIN GLARGINE 100 UNITS/ML, PEN SQ-INSULIN SCH (20:39)
[2020-05-02] MEDS ORDERED: INSULIN GLARGINE 100 UNITS/ML, PEN SQ-INSULIN SCH (21:00)
[2020-05-03 02:17] VITALS: BP 118/73
[2020-05-03] MEDS: ONDANSETRON 2MG/ML, 2ML IVPush PRN ×4 (02:23→20:23)
[2020-05-03] MEDS: VANCOMYCIN 50 MG/ML ORAL SUSP PO SCH ×4 (02:23→20:07)
[2020-05-03] MEDS: PANTOPRAZOLE 40MG TABLET PO SCH (06:27)
[2020-05-03] MEDS: INSULIN LISPRO 100 UNITS/ML, PEN SQ-INSULIN SCH ×4 (07:00→20:06)
[2020-05-03 07:24] VITALS: BP 107/63
[2020-05-03] MEDS: metFORMIN 850 MG TABLET PO SCH ×2 (08:31→16:16)
[2020-05-03] MEDS: SODIUM CHLORIDE FLUSH 10ML SYR IVF SCH ×2 (08:31→20:07)
[2020-05-03] MEDS: SENNA/DOCUSATE TABLET PO SCH (08:32)
[2020-05-03] MEDS: ENOXAPARIN 40 MG/0.4 ML SQ SCH (08:32)
[2020-05-03 11:45] LABS: MEAN CORPUSCULAR HGB CONC 31.6 g/dL (32.4-35.8); MEAN CORPUSCULAR VOLUME 85.4 fL (80-100); MEAN PLATELET VOLUME 9.5 fL (7.4-10.4); PLATELET COUNT 263 x10^3/uL (130-400); RED BLOOD COUNT 3.28 x10^6/uL (3.82-5.3); RED CELL DISTRIBUTION WIDTH 14.6 % (9.6-15.2)
[2020-05-03 12:09] LABS: MD YES
[2020-05-03 12:11] LABS: BAND#(MANUAL) 0.37 x10^3/uL; BANDS%(MANUAL) 2 % (0-7); LYMPH#(MANUAL) 1.67 x10^3/uL (1-3.4); LYMPHS% (MANUAL) 9 % (22-44); MONOS#(MANUAL) 0.93 x10^3/uL (0.3-2.7); MONOS% (MANUAL) 5 % (2-9); MYELOCYTES# (MANUAL) 0.19 x10^3/uL (0-0); MYELOCYTES% (MANUAL) 1 % (0-0); SEG#(MANUAL) 15.36 x10^3/uL (1.8-6.8); SEGS% (MANUAL) 83 % (42-75)
[2020-05-03 12:12] LABS: <PLATELET ESTIMATE> ADEQUATE; <PLT MORPHOLOGY> NORMAL PLT MORPH
[2020-05-03 12:45] VITALS: BP 137/75
[2020-05-03] MEDS: CEFTRIAXONE PMX 2GM/50ML 50 ML IV SCH (14:05)
[2020-05-03 20:03] VITALS: BP 102/64
[2020-05-03] MEDS: INSULIN GLARGINE 100 UNITS/ML, PEN SQ-INSULIN SCH (20:36)
[2020-05-04] MEDS: VANCOMYCIN 50 MG/ML ORAL SUSP PO SCH ×4 (02:15→20:20)
[2020-05-04 02:27] VITALS: BP 108/69
[2020-05-04] MEDS: PANTOPRAZOLE 40MG TABLET PO SCH (06:04)
[2020-05-04 06:48] LABS: MEAN CORPUSCULAR HEMOGLOBIN 27.6 pg (27.0-34.8); MEAN CORPUSCULAR HGB CONC 32.3 g/dL (32.4-35.8); MEAN CORPUSCULAR VOLUME 85.2 fL (80-100); MEAN PLATELET VOLUME 9.7 fL (7.4-10.4); PLATELET COUNT 300 x10^3/uL (130-400); RED BLOOD COUNT 3.26 x10^6/uL (3.82-5.3); RED CELL DISTRIBUTION WIDTH 14.7 % (9.6-15.2)
[2020-05-04] MEDS: INSULIN LISPRO 100 UNITS/ML, PEN SQ-INSULIN SCH ×4 (07:00→20:20)
[2020-05-04 07:17] LABS: BASOPHILS # (AUTO) 0.04 x10^3/uL (0-0.1); BASOPHILS % (AUTO) 0 % (0-1); EOSINOPHILS # (AUTO) 0.25 x10^3/uL (0-0.4); EOSINOPHILS % (AUTO) 1 % (1-7); LYMPHOCYTES # (AUTO) 2.54 x10^3/uL (1-3.4); LYMPHOCYTES % (AUTO) 12 % (22-44); MD SCAN; MONOCYTES # (AUTO) 0.63 x10^3/uL (0.2-0.8); MONOCYTES % (AUTO) 3 % (2-9); NEUTROPHILS # (AUTO) 17.09 x10^3/uL (1.8-6.8); NEUTROPHILS % (AUTO) 83 % (42-75)
[2020-05-04 07:52] VITALS: BP 99/60
[2020-05-04] MEDS: metFORMIN 850 MG TABLET PO SCH ×2 (08:25→17:15)
[2020-05-04] MEDS: SODIUM CHLORIDE FLUSH 10ML SYR IVF SCH ×2 (08:44→20:20)
[2020-05-04] MEDS: SENNA/DOCUSATE TABLET PO SCH (08:44)
[2020-05-04] MEDS ORDERED: CEFAZOLIN 2,000 MG in SODIUM CHLORIDE 0.9% 50 ML IV SCH (10:00)
[2020-05-04 13:51] VITALS: BP 104/68
[2020-05-04] MEDS: CEFAZOLIN PMX 2GM/50ML 50 ML IVPB SCH (18:30)
[2020-05-04 20:09] VITALS: BP 107/69
[2020-05-04] MEDS ORDERED: INSULIN GLARGINE 100 UNITS/ML, PEN SQ-INSULIN SCH (21:00)
[2020-05-05 02:00] VITALS: BP 110/64
[2020-05-05] MEDS: VANCOMYCIN 50 MG/ML ORAL SUSP PO SCH ×2 (02:33→09:13)
[2020-05-05] MEDS: CEFAZOLIN PMX 2GM/50ML 50 ML IVPB SCH ×2 (02:34→09:12)
[2020-05-05] MEDS: PANTOPRAZOLE 40MG TABLET PO SCH (05:23)
[2020-05-05 06:23] LABS: BASOPHILS # (AUTO) 0.06 x10^3/uL (0-0.1); BASOPHILS % (AUTO) 0 % (0-1); EOSINOPHILS # (AUTO) 0.43 x10^3/uL (0-0.4); EOSINOPHILS % (AUTO) 3 % (1-7); LYMPHOCYTES # (AUTO) 2.73 x10^3/uL (1-3.4); LYMPHOCYTES % (AUTO) 18 % (22-44); MD NO; MEAN CORPUSCULAR HEMOGLOBIN 27.4 pg (27.0-34.8); MEAN CORPUSCULAR HGB CONC 31.6 g/dL (32.4-35.8); MEAN CORPUSCULAR VOLUME 86.6 fL (80-100); MEAN PLATELET VOLUME 9.2 fL (7.4-10.4); MONOCYTES # (AUTO) 0.64 x10^3/uL (0.2-0.8); MONOCYTES % (AUTO) 4 % (2-9); NEUTROPHILS # (AUTO) 11.09 x10^3/uL (1.8-6.8); NEUTROPHILS % (AUTO) 74 % (42-75); PLATELET COUNT 277 x10^3/uL (130-400); RED BLOOD COUNT 3.15 x10^6/uL (3.82-5.3); RED CELL DISTRIBUTION WIDTH 15.3 % (9.6-15.2)
[2020-05-05] MEDS: INSULIN LISPRO 100 UNITS/ML, PEN SQ-INSULIN SCH ×2 (07:00→11:39)
[2020-05-05] MEDS: SENNA/DOCUSATE TABLET PO SCH (07:11)
[2020-05-05 07:13] VITALS: BP 110/73
[2020-05-05] MEDS: metFORMIN 850 MG TABLET PO SCH (08:00)
[2020-05-05] MEDS: SODIUM CHLORIDE FLUSH 10ML SYR IVF SCH (09:00)
[2020-05-05] MEDS ORDERED: VANC1VIA3 PO (11:21)
[2020-05-05] MEDS ORDERED: GLIP10TA13 PO (11:21)
[2020-05-05] MEDS ORDERED: METF850T PO (11:21)
[2020-05-05] MEDS ORDERED: LISI40TA PO (11:21)
[2020-05-05] MEDS ORDERED: CEFA2PLA9 IV (11:21)
[2020-05-05] MEDS ORDERED: PANT40TA5 PO (11:21)
== END 2020-05-05 12:20 | disposition home or self-care (01) | DRG 871 ==
LOC: ED 10:25 → EDIP 11:47 → 4EST 21:08
PROVIDERS: ADMIT Family Medicine; ATTEND Internal Medicine Infectious Disease
DX: A41.9 Sepsis, unspecified organism (principal); N17.0 Acute kidney failure with tubular necrosis; K27.4 Chronic or unspecified peptic ulcer, site unspecified, with hemorrhage; N10 Acute pyelonephritis; A04.72 Enterocolitis due to Clostridium difficile, not specified as recurrent; N39.0 Urinary tract infection, site not specified; R65.20 Severe sepsis without septic shock; B96.20 Unspecified Escherichia coli [E. coli] as the cause of diseases classified elsewhere; B96.89 Other specified bacterial agents as the cause of diseases classified elsewhere; D64.9 Anemia, unspecified; E11.65 Type 2 diabetes mellitus with hyperglycemia; E78.00 Pure hypercholesterolemia, unspecified; E78.5 Hyperlipidemia, unspecified; G89.29 Other chronic pain; K21.9 Gastro-esophageal reflux disease without esophagitis; N18.9 Chronic kidney disease, unspecified; I12.9 Hypertensive chronic kidney disease with stage 1 through stage 4 chronic kidney disease, or unspecified chronic kidney disease; E11.22 Type 2 diabetes mellitus with diabetic chronic kidney disease; Z20.828 Contact with and (suspected) exposure to other viral communicable diseases; Z79.4 Long term (current) use of insulin; Z79.899 Other long term (current) drug therapy; Z87.01 Personal history of pneumonia (recurrent); Z87.891 Personal history of nicotine dependence; Z90.710 Acquired absence of both cervix and uterus; I95.9 Hypotension, unspecified; Z82.49 Family history of ischemic heart disease and other diseases of the circulatory system
CPT/HCPCS: 36415; 84145; 96365; 96366; 99285; J3370; 36573; 71045; 76770; 78580; 80048; 80053; 81001; 82272; 82728; 82784; 82787; 82962; 83036; 83540; 83550; 83605; 83615; 83735; 85025; 85049; 85379; 85384; 85610; 85651; 85730; 86140; 87040; 87077; 87086; 87186; 87324; 87635; 93005; 93306; G0378; J0690; J0696; J1650; J2405; J3480; A9540; C1751; J1815; J7050; J7120

== ENCOUNTER 2020-09-09 16:45 | Inpatient (IN) | payer OTHER ==
[~2020-09-09] VITALS: Ht 160 cm; Wt 108.1 kg
[~2020-09-09 16:45] MED LIST changes: +CARV3.122 PO; +CEFA2PLA9 IV; +GLIP10TA13 PO; +PANT40TA6 PO; +VANC1VIA3 PO
--- NOTE | 2020-09-09 17:00 | NUR ---
MARQUISE RN: PT WHEELED TO ROOM AT THIS TIME. CHART W/ EKG HANDED TO PROVIDER. AWARE OF BP.
--- NOTE | 2020-09-09 17:00 | NUR ---
Patient presents to ER c/o SOB, cough, CP, and diarrhea x2 days. Patient states the CP is worse with a cough. No blood noted to stool. Patient also c/o dizziness. Denies N/V. Patient is having obvious diff breathing. Resirations symmetrical. Patient hypotensive in triage; manual BP taken and hypotension confirmed.
[2020-09-09 17:29] LABS: MEAN CORPUSCULAR HEMOGLOBIN 22.1 pg (27.0-34.8); MEAN CORPUSCULAR HGB CONC 30.4 g/dL (32.4-35.8); MEAN PLATELET VOLUME 9.3 fL (7.4-10.4); PLATELET COUNT 243 x10^3/uL (130-400); RED BLOOD COUNT 4.92 x10^6/uL (3.82-5.3); RED CELL DISTRIBUTION WIDTH 18.3 % (9.6-15.2)
[2020-09-09 17:30] LABS: MD YES
[2020-09-09 17:37] LABS: ALANINE AMINOTRANSFERASE 7 U/L (12-78); ALBUMIN 2.5 g/dL (3.4-5.0); ANION GAP 14 mmol/L (5-15); CALCIUM 9.2 mg/dL (8.5-10.1); CHLORIDE 107 mmol/L (98-107); CREATININE 3.82 mg/dL (0.55-1.02)
[2020-09-09 17:41] LABS: ALKALINE PHOSPHATASE 116 U/L (45-117); BILIRUBIN,TOTAL 4.1 mg/dL (0.2-1.0); TOTAL PROTEIN 8.3 g/dL (6.4-8.2); TROPONIN I < 0.015 ng/mL (0.000-0.045)
[2020-09-09 17:43] LABS: BAND#(MANUAL) 9.57 x10^3/uL; BANDS%(MANUAL) 29 % (0-7); EOS#(MANUAL) 0.33 x10^3/uL (0.0-0.4); EOS% (MANUAL) 1 % (1-7); LYMPH#(MANUAL) 0.99 x10^3/uL (1-3.4); LYMPHS% (MANUAL) 3 % (22-44); METAMYELOCYTES# (MANUAL) 0.99 x10^3/uL (0-0); METAMYELOCYTES% (MANUAL) 3 % (0-1); MONOS#(MANUAL) 1.65 x10^3/uL (0.3-2.7); MONOS% (MANUAL) 5 % (2-9); SEG#(MANUAL) 19.47 x10^3/uL (1.8-6.8); SEGS% (MANUAL) 59 % (42-75)
[2020-09-09 17:44] LABS: <PLATELET ESTIMATE> ADEQUATE; PMNS WITH VACUOLES 1+
[2020-09-09 17:45] LABS: ANISOCYTOSIS 1+; SCHISTOCYTES 1+
[2020-09-09 17:46] LABS: HYPOCHROMIA 1+
[2020-09-09 17:48] LABS: GIANT PLATELETS 1+; LARGE PLATELETS 1+
[2020-09-09 17:56] LABS: TOXIC GRAN 1+
[2020-09-09 17:59] LABS: TEAR DROPS 1+
[2020-09-09] MEDS ORDERED: SODIUM CHLORIDE 0.9% 1,000ML IVBOLUS ONE ×2 (18:00)
[2020-09-09] MEDS ORDERED: NOREPINEPHRINE 8 MG in SODIUM CHLORIDE 0.9% 242 ML IV PRN ×2 (18:00→19:00)
[2020-09-09] MEDS ORDERED: AZITHROMYCIN 500 MG in SODIUM CHLORIDE 0.9% 250 ML IVPB ONE (18:00)
[2020-09-09 18:01] LABS: CRENATED 1+
[2020-09-09] MEDS ORDERED: CEFTRIAXONE PMX 1GM/50ML 50 ML ONE (18:02)
--- NOTE | 2020-09-09 18:09 | NUR ---
Patient c/o epigastric pain into chest.
--- NOTE | 2020-09-09 18:10 | NUR ---
Abx and Levophed to be admin per mar.
[2020-09-09] MEDS ORDERED: DOCUSATE 100 MG CAPSULE PO PRN (19:00)
[2020-09-09] MEDS ORDERED: CEFTRIAXONE PMX 1GM/50ML 50 ML IVPB ONE (19:00)
[2020-09-09] MEDS ORDERED: ONDANSETRON 2MG/ML, 2ML IVPush PRN (19:00)
[2020-09-09 19:16] LABS: % IRON SATURATION 5 % (20-55); IRON LEVEL 14 mcg/dL (50-170); TOTAL IRON BINDING CAPACITY 264 mcg/dL (250-450)
--- NOTE | 2020-09-09 19:21 | NUR ---
Report given to KARLO Ortiz. Patient to be transferred to room 559.
[2020-09-09 19:22] LABS: D-DIMER (DIC) 3.29 ug/mlFEU (0.00-0.52); PROTIME 17.6 Seconds (9.6-11.5)
[2020-09-09 19:23] LABS: C-REACTIVE PROTEIN, QUANT > 19.00 mg/dL (0.02-0.49)
[2020-09-09] MEDS: SODIUM CHLORIDE 0.9% 1,000 ML IV SCH (20:15)
[2020-09-09] MEDS: HEPARIN 5,000 UNITS/ML, 1ML SQ SCH (20:15)
[2020-09-09] MEDS: INSULIN LISPRO 100 UNITS/ML, PEN SQ-INSULIN SCH (20:47)
[2020-09-09] MEDS ORDERED: FAMOTIDINE 20 MG/2 ML IVPush SCH (21:00)
[2020-09-09 21:03] LABS: CHLORIDE,URINE RANDOM 23 mmol/L; POTASSIUM,URINE RANDOM 47 mmol/L; SODIUM,URINE RANDOM 32 mmol/L
[2020-09-09 21:06] LABS: MICROSCOPIC INDICATED
[2020-09-09] MEDS: ACETAMINOPHEN 325 MG TABLET PO PRN (22:43)
[2020-09-09] MEDS ORDERED: IBUPROFEN 200 MG TABLET PO PRN (23:00)
[2020-09-10] MEDS: BENZONATATE 100 MG CAPSULE PO PRN ×3 (00:13→19:52)
[2020-09-10 00:38] LABS: TROPONIN I 0.027 ng/mL (0.000-0.045)
[2020-09-10] MEDS: ACETAMINOPHEN 325 MG TABLET PO PRN ×3 (03:40→19:52)
[2020-09-10] MEDS: SODIUM CHLORIDE 0.9% 1,000 ML IV SCH (03:42)
[2020-09-10] MEDS: HEPARIN 5,000 UNITS/ML, 1ML SQ SCH ×4 (03:51→19:42)
[2020-09-10 04:20] LABS: MEAN CORPUSCULAR HEMOGLOBIN 22.3 pg (27.0-34.8); MEAN CORPUSCULAR HGB CONC 30.7 g/dL (32.4-35.8); PLATELET COUNT 246 x10^3/uL (130-400); RED BLOOD COUNT 4.52 x10^6/uL (3.82-5.3); RED CELL DISTRIBUTION WIDTH 18.6 % (9.6-15.2)
[2020-09-10 04:27] LABS: ANION GAP 9 mmol/L (5-15); CALCIUM 8.7 mg/dL (8.5-10.1); CHLORIDE 110 mmol/L (98-107)
[2020-09-10 04:34] LABS: ALANINE AMINOTRANSFERASE 8 U/L (12-78); ALKALINE PHOSPHATASE 114 U/L (45-117); BILIRUBIN,TOTAL 3.2 mg/dL (0.2-1.0); CREATININE 2.97 mg/dL (0.55-1.02); TOTAL PROTEIN 6.9 g/dL (6.4-8.2); TROPONIN I 0.022 ng/mL (0.000-0.045)
[2020-09-10 05:11] LABS: MD YES
[2020-09-10 05:12] LABS: BAND#(MANUAL) 8.71 x10^3/uL; BANDS%(MANUAL) 28 % (0-7); LYMPH#(MANUAL) 1.87 x10^3/uL (1-3.4); LYMPHS% (MANUAL) 6 % (22-44); METAMYELOCYTES# (MANUAL) 1.24 x10^3/uL (0-0); METAMYELOCYTES% (MANUAL) 4 % (0-1); MONOS#(MANUAL) 0.31 x10^3/uL (0.3-2.7); MONOS% (MANUAL) 1 % (2-9); SEG#(MANUAL) 18.97 x10^3/uL (1.8-6.8); SEGS% (MANUAL) 61 % (42-75)
[2020-09-10 05:13] LABS: ANISOCYTOSIS 1+; POLYCHROMASIA 1+
[2020-09-10 05:14] LABS: <PLATELET ESTIMATE> ADEQUATE; CRENATED 1+; ECHINOCYTES 1+; PMNS WITH VACUOLES 1+; TEAR DROPS 1+; TOXIC GRAN 1+
[2020-09-10 05:15] LABS: LARGE PLATELETS 1+
[2020-09-10] MEDS ORDERED: CEFAZOLIN PMX 1GM/50ML 50 ML IV SCH (06:00)
[2020-09-10] MEDS: CEFTRIAXONE PMX 2GM/50ML 50 ML IVPB SCH ×2 (07:30→08:58)
[2020-09-10] MEDS ORDERED: VANCOMYCIN PER PHARMACY MC PRN (07:30)
[2020-09-10] MEDS: INSULIN LISPRO 100 UNITS/ML, PEN SQ-INSULIN SCH ×4 (07:30→20:35)
[2020-09-10] MEDS ORDERED: PHARMACOKINETIC MONITORING MC PRN (09:00)
[2020-09-10] MEDS ORDERED: PHARMACOKINETIC CONSULTATION MC ONE (09:00)
[2020-09-10] MEDS ORDERED: VANCOMYCIN 2,100 MG in SODIUM CHLORIDE 0.9% 500 ML IV ONE (09:00)
[2020-09-10] MEDS: MORPHINE SULFATE 4 MG/ML, 1ML IVPush PRN (14:00)
[2020-09-10] MEDS ORDERED: ALUMINUM/MAG/SIMETHICONE 30 ML UDC PO PRN (14:00)
[2020-09-10] MEDS ORDERED: HEPARIN 25,000 UNITS/250ML PMX 250 ML IV PRN (15:30)
[2020-09-10] MEDS ORDERED: FILTER 0.22 MICRON IV PRN (15:30)
[2020-09-10] MEDS ORDERED: HEPARIN 5,000 UNITS/ML, 1ML IV ONE (15:30)
[2020-09-10] MEDS: AMIODARONE 450 MG in DEXTROSE 5% 241 ML IV SCH ×2 (15:33→22:04)
[2020-09-10] MEDS: HEPARIN 25,000 UNITS/250ML PMX 250 ML IV PRN (16:03)
[2020-09-10] MEDS ORDERED: AMIODARONE 150 MG in DEXTROSE 5% 100 ML IV ONE (16:30)
[2020-09-10] MEDS ORDERED: AZITHROMYCIN 500 MG in SODIUM CHLORIDE 0.9% 250 ML IV SCH (18:00)
[2020-09-10] MEDS: ATORVASTATIN 40 MG TABLET PO SCH (19:52)
[2020-09-10] MEDS: HEPARIN 5,000 UNITS/ML, 1ML IV PRN (21:57)
[2020-09-11] MEDS: MORPHINE SULFATE 4 MG/ML, 1ML IVPush PRN (00:14)
[2020-09-11 04:22] LABS: MEAN CORPUSCULAR HEMOGLOBIN 22.5 pg (27.0-34.8); MEAN CORPUSCULAR HGB CONC 30.5 g/dL (32.4-35.8); MEAN PLATELET VOLUME 9.1 fL (7.4-10.4); PLATELET COUNT 228 x10^3/uL (130-400); RED BLOOD COUNT 4.29 x10^6/uL (3.82-5.3); RED CELL DISTRIBUTION WIDTH 18.2 % (9.6-15.2)
[2020-09-11 04:25] LABS: ALANINE AMINOTRANSFERASE 6 U/L (12-78); ALBUMIN 1.8 g/dL (3.4-5.0); ANION GAP 7 mmol/L (5-15); CALCIUM 8.5 mg/dL (8.5-10.1); CHLORIDE 111 mmol/L (98-107); CREATININE 2.04 mg/dL (0.55-1.02)
[2020-09-11 04:36] LABS: ALKALINE PHOSPHATASE 104 U/L (45-117); BILIRUBIN,TOTAL 1.5 mg/dL (0.2-1.0); FREE T4 (FREE THYROXINE) 1.67 ng/dL (0.76-1.46); TOTAL PROTEIN 6.7 g/dL (6.4-8.2); TROPONIN I 0.835 ng/mL (0.000-0.045); VANCOMYCIN,RANDOM 17.1 mcg/mL
[2020-09-11 05:20] LABS: MD YES
[2020-09-11 05:24] LABS: BAND#(MANUAL) 2.78 x10^3/uL; BANDS%(MANUAL) 15 % (0-7); EOS#(MANUAL) 0.56 x10^3/uL (0.0-0.4); EOS% (MANUAL) 3 % (1-7); LYMPH#(MANUAL) 3.33 x10^3/uL (1-3.4); LYMPHS% (MANUAL) 18 % (22-44); METAMYELOCYTES# (MANUAL) 0.37 x10^3/uL (0-0); METAMYELOCYTES% (MANUAL) 2 % (0-1); MONOS#(MANUAL) 0.93 x10^3/uL (0.3-2.7); MONOS% (MANUAL) 5 % (2-9); MYELOCYTES# (MANUAL) 0.19 x10^3/uL (0-0); MYELOCYTES% (MANUAL) 1 % (0-0); SEG#(MANUAL) 10.36 x10^3/uL (1.8-6.8); SEGS% (MANUAL) 56 % (42-75)
[2020-09-11 05:25] LABS: ANISOCYTOSIS 1+
[2020-09-11 05:26] LABS: ECHINOCYTES 1+; OVALOCYTES 1+; TARGET CELLS 1+; TEAR DROPS 1+
[2020-09-11 05:27] LABS: <PLATELET ESTIMATE> ADEQUATE; HYPOCHROMIA 1+; LARGE PLATELETS 1+; PMNS WITH VACUOLES 1+; TOXIC GRAN 1+
[2020-09-11 05:28] LABS: CRENATED 1+
[2020-09-11] MEDS: HEPARIN 5,000 UNITS/ML, 1ML IV PRN ×3 (05:34→20:21)
[2020-09-11] MEDS: INSULIN LISPRO 100 UNITS/ML, PEN SQ-INSULIN SCH ×4 (07:22→20:18)
[2020-09-11] MEDS ORDERED: VANCOMYCIN 1,800 MG in SODIUM CHLORIDE 0.9% 250 ML IV ONE (09:00)
[2020-09-11] MEDS: CEFTRIAXONE PMX 2GM/50ML 50 ML IVPB SCH (09:24)
[2020-09-11] MEDS: ASPIRIN 81 MG TABLET CHEW PO SCH (09:40)
[2020-09-11] MEDS: AMIODARONE 200 MG TABLET PO SCH ×2 (09:40→20:19)
[2020-09-11 10:45] VITALS: BP 104/66
[2020-09-11] MEDS: HEPARIN 25,000 UNITS/250ML PMX 250 ML IV PRN (13:24)
[2020-09-11 16:07] VITALS: BP_SYST 100; BP_SYST 93; BP_SYST 97; BP_DIAS 43; BP_DIAS 47; BP_DIAS 60
[2020-09-11 20:14] VITALS: BP 101/71
[2020-09-11] MEDS: ATORVASTATIN 40 MG TABLET PO SCH (20:19)
[2020-09-11] MEDS: BENZONATATE 100 MG CAPSULE PO PRN (20:22)
[2020-09-11] MEDS: ACETAMINOPHEN 325 MG TABLET PO PRN (20:22)
[2020-09-11] MEDS ORDERED: CALCIUM CARBONATE 500 MG TAB.CHEW PO PRN (22:30)
[2020-09-12 03:11] VITALS: BP 124/61
[2020-09-12 03:29] LABS: MEAN CORPUSCULAR HEMOGLOBIN 22.8 pg (27.0-34.8); MEAN CORPUSCULAR HGB CONC 31.2 g/dL (32.4-35.8); MEAN PLATELET VOLUME 8.8 fL (7.4-10.4); PLATELET COUNT 153 x10^3/uL (130-400); RED BLOOD COUNT 4.11 x10^6/uL (3.82-5.3); RED CELL DISTRIBUTION WIDTH 18.3 % (9.6-15.2)
[2020-09-12 03:30] LABS: ANION GAP 7 mmol/L (5-15); CALCIUM 8.6 mg/dL (8.5-10.1); CHLORIDE 111 mmol/L (98-107); CREATININE 1.83 mg/dL (0.55-1.02)
[2020-09-12] MEDS: HEPARIN 5,000 UNITS/ML, 1ML IV PRN ×2 (03:52→10:58)
[2020-09-12 04:16] LABS: MD YES
[2020-09-12 04:19] LABS: ANISOCYTOSIS 1+; BAND#(MANUAL) 0.43 x10^3/uL; BANDS%(MANUAL) 5 % (0-7); EOS#(MANUAL) 0.09 x10^3/uL (0.0-0.4); EOS% (MANUAL) 1 % (1-7); HYPOCHROMIA 1+; LYMPH#(MANUAL) 1.53 x10^3/uL (1-3.4); LYMPHS% (MANUAL) 18 % (22-44); METAMYELOCYTES# (MANUAL) 0.17 x10^3/uL (0-0); METAMYELOCYTES% (MANUAL) 2 % (0-1); MICROCYTOSIS 1+; MONOS% (MANUAL) 7 % (2-9); SEGS% (MANUAL) 67 % (42-75)
[2020-09-12 04:21] LABS: <PLATELET ESTIMATE> ADEQUATE; LARGE PLATELETS 1+
[2020-09-12 04:22] LABS: TEAR DROPS 1+
[2020-09-12] MEDS: INSULIN LISPRO 100 UNITS/ML, PEN SQ-INSULIN SCH ×4 (06:38→21:00)
[2020-09-12] MEDS: ASPIRIN 81 MG TABLET CHEW PO SCH (07:44)
[2020-09-12] MEDS: AMIODARONE 200 MG TABLET PO SCH ×2 (07:44→21:31)
[2020-09-12] MEDS: HEPARIN 25,000 UNITS/250ML PMX 250 ML IV PRN (07:46)
[2020-09-12 08:10] VITALS: BP 113/61
[2020-09-12] MEDS ORDERED: REGADENOSON 0.4 MG/5 ML SYRINGE ONE (09:27)
[2020-09-12] MEDS: CEFTRIAXONE PMX 2GM/50ML 50 ML IVPB SCH (12:24)
[2020-09-12 14:04] VITALS: BP 109/65
[2020-09-12] MEDS: HEPARIN 5,000 UNITS/ML, 1ML SQ SCH (16:18)
[2020-09-12 21:16] VITALS: BP 121/80
[2020-09-12] MEDS: ATORVASTATIN 40 MG TABLET PO SCH (21:31)
[2020-09-12 23:40] VITALS: BP 138/83
[2020-09-13] MEDS: ACETAMINOPHEN 325 MG TABLET PO PRN (00:05)
[2020-09-13] MEDS: HEPARIN 5,000 UNITS/ML, 1ML SQ SCH ×2 (00:06→08:00)
[2020-09-13] MEDS: INSULIN LISPRO 100 UNITS/ML, PEN SQ-INSULIN SCH ×2 (07:00→12:11)
[2020-09-13] MEDS ORDERED: FUROSEMIDE 20 MG/2 ML IV ONE (09:00)
[2020-09-13] MEDS ORDERED: AMOX1TAB64 PO (09:04)
[2020-09-13 09:12] VITALS: BP 157/77
[2020-09-13] MEDS: ASPIRIN 81 MG TABLET CHEW PO SCH (09:31)
[2020-09-13] MEDS: AMIODARONE 200 MG TABLET PO SCH (09:31)
[2020-09-13] MEDS: CEFTRIAXONE PMX 2GM/50ML 50 ML IVPB SCH (10:24)
== END 2020-09-13 13:15 | disposition home or self-care (01) | DRG 871 ==
LOC: ED 17:20 → EDIP 18:16 → CCU 19:36 → 3WST 09-11 10:40 → 5SO 09-12 18:39 → DCLOUNGE 09-13 13:09
PROVIDERS: ADMIT Family Medicine; ATTEND Family Medicine
PROC: 02HV33Z Insertion of Infusion Device into Superior Vena Cava, Percutaneous Approach (ICD-10-PCS; principal; 2020-09-09)
PROC: B548ZZA Ultrasonography of Superior Vena Cava, Guidance (ICD-10-PCS; 2020-09-09)
DX: A40.3 Sepsis due to Streptococcus pneumoniae (principal); R65.21 Severe sepsis with septic shock; I21.4 Non-ST elevation (NSTEMI) myocardial infarction; J15.4 Pneumonia due to other streptococci; J96.01 Acute respiratory failure with hypoxia; K72.00 Acute and subacute hepatic failure without coma; N17.0 Acute kidney failure with tubular necrosis; A04.72 Enterocolitis due to Clostridium difficile, not specified as recurrent; D68.69 Other thrombophilia; D64.9 Anemia, unspecified; E11.22 Type 2 diabetes mellitus with diabetic chronic kidney disease; E78.00 Pure hypercholesterolemia, unspecified; E78.5 Hyperlipidemia, unspecified; E86.0 Dehydration; I12.9 Hypertensive chronic kidney disease with stage 1 through stage 4 chronic kidney disease, or unspecified chronic kidney disease; I27.20 Pulmonary hypertension, unspecified; I48.91 Unspecified atrial fibrillation; N18.9 Chronic kidney disease, unspecified; Z20.828 Contact with and (suspected) exposure to other viral communicable diseases; Z87.891 Personal history of nicotine dependence; Z90.710 Acquired absence of both cervix and uterus
CPT/HCPCS: 36415; 71045; 78452; 80048; 80053; 80202; 81001; 82436; 82728; 82962; 83036; 83540; 83550; 83605; 83690; 83880; 84133; 84145; 84300; 84439; 84443; 84484; 85025; 85049; 85379; 85384; 85520; 85610; 85730; 86140; 87040; 87081; 87086; 87181; 93005; 93017; 93306; 96361; 96374; 96375; 99291; G0378; J0456; J0690; J0696; J1644; J2405; J2785; J3370; J7060; A9502; J0282; J1815; J1940; J2270; J7030; J7040; J7050; U0003